=== PATIENT | female | born 1990 | race African-American/Black ===

== ENCOUNTER 2022-01-31 07:55 | Observation (INO) ==
[2022-01-31 08:20] LABS: Basophils % 0.3 % (0.0-0.8); Hematocrit 38.1 VOL% (35.7-47.0); Hemoglobin 11.4 GM/DL (12.0-16.0); Immature Granulocytes % 0.3 %; Immature Granulocytes Absolute 0.03 #; Lymphocytes # 1.3 10*3/uL (1.4-4.0); Lymphocytes % 12.8 % (21.3-54.2); Mean Corpuscular HGB Conc 29.9 GM/DL (32-36); Mean Corpuscular Volume 76.5 FL (87-102); Mean Platelet Volume 10.7 FL (9.6-12.0); Monocytes # 0.6 10*3/uL (0.11-0.8); Monocytes % 5.4 % (1.7-12.7); Neutrophils % 71.2 % (38.7-73.9); Platelet Count 260 T/CUMM (130-400); Red Blood Count 4.98 MC/CUMM (3.8-5.5); Red Cell Distribution Width 16.7 % (9.3-17.3); White Blood Count 10.4 T/CUMM (4-12)
[2022-01-31] MEDS ORDERED: methylPREDNISolone SOD SUC 125 MG/2 ML VIAL IV STA (08:21)
[2022-01-31] MEDS ORDERED: ALBUTEROL NEB SOLN 5 MG/ML 20 ML/BOTTLE CONT NEB SCH (08:30)
[2022-01-31 08:50] LABS: Albumin 3.7 G/DL (3.4-5.0); Bilirubin,Total 0.6 MG/DL (0.20-1.00); Calcium 8.9 MG/DL (8.5-10.1); Osmolality,Calculated 271.8 MOS/KG (273-304); Total Protein 7.7 G/DL (6.4-8.2)
[2022-01-31] MEDS ORDERED: IPRATROPIUM 500 MCG/2.5 ML NEB RESP TX STA (09:24)
[2022-01-31] MEDS ORDERED: ONDANSETRON 4 MG/2 ML VIAL IV PRN (10:11)
[2022-01-31] MEDS ORDERED: NICOTINE 21 MG/24 HR PATCH TRANSDERM PRN (10:11)
[2022-01-31] MEDS ORDERED: ACETAMINOPHEN 325 MG TABLET PO PRN (10:11)
[2022-01-31] MEDS: LACTATED RINGERS 1,000 ML IV SCH ×2 (10:48→23:11)
[2022-01-31] MEDS: ENOXAPARIN 40 MG/0.4 ML SYRINGE SUBCUT SCH (10:49)
[2022-01-31] MEDS: AZITHROMYCIN INJ 500 MG in SODIUM CHLORIDE 0.9% 250 ML IV SCH (10:49)
[2022-01-31] MEDS: ALBUTEROL 2.5 MG/3 ML NEB RESP TX SCH ×2 (13:36→19:24)
[2022-01-31] MEDS: cefTRIAXone 1,000 MG in SODIUM CHLORIDE 0.9% 100 ML IV SCH (13:41)
[2022-01-31] MEDS: methylPREDNISolone SOD SUC 40 MG/1 ML VIAL IV SCH (17:37)
[2022-01-31] MEDS: BUDESONIDE/FORMOTEROL 160-4.5 INHALER 6 GM INH SCH (20:57)
[2022-01-31] MEDS ORDERED: MONTELUKAST 10 MG TABLET PO SCH (21:00)
[2022-02-01] MEDS: ALBUTEROL 2.5 MG/3 ML NEB RESP TX SCH ×3 (00:54→13:10)
[2022-02-01] MEDS: methylPREDNISolone SOD SUC 40 MG/1 ML VIAL IV SCH ×2 (00:59→08:22)
[2022-02-01 05:15] LABS: Calcium 9.5 MG/DL (8.5-10.1); Osmolality,Calculated 279.4 MOS/KG (273-304); Potassium 4.3 MMOL/L (3.5-5.1)
[2022-02-01 05:16] LABS: Basophils % 0.1 % (0.0-0.8); Hematocrit 36.4 VOL% (35.7-47.0); Hemoglobin 10.9 GM/DL (12.0-16.0); Immature Granulocytes % 0.7 %; Immature Granulocytes Absolute 0.07 #; Lymphocytes # 0.8 10*3/uL (1.4-4.0); Lymphocytes % 8.5 % (21.3-54.2); Mean Corpuscular HGB Conc 29.9 GM/DL (32-36); Mean Corpuscular Volume 76.5 FL (87-102); Mean Platelet Volume 11.1 FL (9.6-12.0); Monocytes # 0.1 10*3/uL (0.11-0.8); Monocytes % 1.2 % (1.7-12.7); Neutrophils % 89.5 % (38.7-73.9); Platelet Count 268 T/CUMM (130-400); Red Blood Count 4.76 MC/CUMM (3.8-5.5); Red Cell Distribution Width 16.7 % (9.3-17.3); White Blood Count 9.9 T/CUMM (4-12)
[2022-02-01] MEDS: BUDESONIDE/FORMOTEROL 160-4.5 INHALER 6 GM INH SCH (08:22)
[2022-02-01] MEDS: LACTATED RINGERS 1,000 ML IV SCH (08:22)
[2022-02-01] MEDS ORDERED: MAGNESIUM SULF RIDER 2 GM/50 ML PREMIX IV ONE (10:30)
[2022-02-01] MEDS ORDERED: NICOTINE 21 MG/24 HR PATCH TRANSDERM SCH (10:30)
[2022-02-01] MEDS: cefTRIAXone 1,000 MG in SODIUM CHLORIDE 0.9% 100 ML IV SCH (10:34)
[2022-02-01] MEDS: ENOXAPARIN 40 MG/0.4 ML SYRINGE SUBCUT SCH (11:02)
[2022-02-01 12:19] VITALS: BP 116/66
[2022-02-01] MEDS: AZITHROMYCIN INJ 500 MG in SODIUM CHLORIDE 0.9% 250 ML IV SCH (12:30)
[2022-02-01] MEDS ORDERED: POTASSIUM CHLORIDE 20 MEQ TABLET PO ONE (12:55)
== END 2022-02-01 16:11 | disposition home or self-care (01) ==
LOC: N.EDINP 07:55 → N.ED 07:55 → SUATTDRO 10:11 → N.EDINP 13:00 → N.3E 16:31
PROVIDERS: ADMIT Internal Medicine; ATTEND Family Medicine